=== PATIENT | male | born 1955 | race Caucasian/White ===

== ENCOUNTER 2017-03-11 02:40 | Inpatient (IN) ==
[2017-03-11] MEDS ORDERED: KETOROLAC 30 MG/1 ML VIAL IV STA (03:09)
[2017-03-11] MEDS ORDERED: ONDANSETRON 4 MG/2 ML VIAL IV STA (03:10)
[2017-03-11] MEDS ORDERED: MORPHINE 2 MG/1 ML SYRINGE IV STA (03:10)
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
[2017-03-11 03:14] LABS: Basophils % 0.3 % (0.0-0.8); Eosinophils # 0.3 10*3/uL (0.0-0.87); Eosinophils % 2.8 % (0.00-10.9); Hematocrit 34.4 VOL% (42.0-52.0); Hemoglobin 11.6 GM/DL (14.0-18.0); Immature Granulocytes % 0.3 %; Immature Granulocytes Absolute 0.04 #; Lymphocytes # 1.4 10*3/uL (1.4-4.0); Lymphocytes % 11.1 % (21.2-54.2); Mean Corpuscular HGB Conc 33.7 GM/DL (32-36); Mean Corpuscular Hemoglobin 33 PG (27-34); Mean Corpuscular Volume 96.9 FL (87-102); Mean Platelet Volume 10.4 FL (9.6-12.0); Monocytes # 0.4 10*3/uL (0.11-0.8); Monocytes % 3.6 % (1.7-12.7); Neutrophils # 10.1 10*3/uL (1.4-7.4); Neutrophils % 81.9 % (38.7-73.9); Platelet Count 145 T/CUMM (130-400); Red Blood Count 3.55 MC/CUMM (3.8-5.5); Red Cell Distribution Width 14.9 % (9.3-17.3); White Blood Count 12.3 T/CUMM (4-12)
[2017-03-11] MEDS ORDERED: ONDANSETRON 4 MG/2 ML VIAL ONE (03:16)
[2017-03-11] MEDS ORDERED: MORPHINE 2 MG/1 ML SYRINGE ONE (03:17)
[2017-03-11] MEDS ORDERED: KETOROLAC 30 MG/1 ML VIAL ONE (03:17)
[2017-03-11 03:23] LABS: Apearance,Urine Slightly Hazy (Clear); Bacteria,Urine Many /HPF (Few); Bilirubin,Urine Negative (Negative); Blood, Urine Negative (Negative); Glucose,Urine (UA) Negative (Negative); Ketones,Urine Negative (Negative); Nitrite,Urine Positive (Negative); Protein,Urine 100 MG/DL; RBC,Urine 9 /HPF (0-4); Squamous Epithelial Cell,Urine Occasional /HPF (0-10); Urine Color Yellow (Yellow); Urine Specific Gravity 1.005 (1.001-1.035); Urine Urobilinogen < 2.0 EU/DL (0.2-1.0); WBC,Urine 1 /HPF (0-6)
[2017-03-11 03:32] LABS: Alanine Aminotransferase 17 U/L (16-61); Alkaline Phosphatase 104 U/L (45-117); Aspartate Amino Transferase 23 U/L (0-37); Bilirubin,Total < 0.39 MG/DL (0.2-1.0); Blood Urea Nitrogen 31 MG/DL (7-18); Calcium 8.4 MG/DL (8.5-10.1); Glucose 128 MG/DL (74-106); Osmolality,Calculated 274.4 MOS/KG (273-304); Potassium 4.9 MMOL/L (3.5-5.1); Sodium 133 MMOL/L (136-145); Total Protein 6.2 G/DL (6.4-8.3); Troponin I Only 0.021 NG/ML (0.00-0.045)
[2017-03-11] MEDS ORDERED: LORazepam 2 MG/1 ML VIAL ONE (03:38)
[2017-03-11] MEDS ORDERED: VANCOMYCIN INJ 1,000 MG in SODIUM CHLORIDE 0.9% 250 ML IV STA (03:53)
[2017-03-11] MEDS ORDERED: LORazepam 2 MG/1 ML VIAL IV STA (03:55)
[2017-03-11] MEDS ORDERED: CEFEPIME 2,000 MG in SODIUM CHLORIDE 0.9% 100 ML IV STA (03:59)
[2017-03-11] MEDS ORDERED: VANCOMYCIN 1,000 MG VIAL ONE (04:04)
[2017-03-11] MEDS ORDERED: SODIUM CHLORIDE 0.9% 100 ML IV ONE (04:05)
--- NOTE | 2017-03-11 04:48 | Hospitalist History & Physical ---
Assessment and Plan (1) UTI (urinary tract infection) Status: Acute Current Visit: No (2) CML (chronic myelocytic leukemia) Status: Acute Current Visit: No (3) CKD (chronic kidney disease) Status: Acute Current Visit: No (4) Seizure Status: Acute Current Visit: No (5) Altered mental state Status: Acute Current Visit: No (6) Delirium due to another medical condition Status: Acute Assessment and plan: We will admit the patient service. Secondary to him having a seizure and being unresponsive on want to put him in the ICU. My thought process is possible urinary tract infection he is nitrite positive. We are going to culture his urine. He has a history of MRSA bacteremia O we will have drawn blood cultures. We will start him on vancomycin and Levaquin for this. I cannot discount the fact that he might possibly have had a stroke also. Will check carotid ultrasound. An additional imaging might be necessary and can be ordered once patient is more awake. Will check a Dilantin level in this patient. He is on Dilantin at home. If his low this could be a reason for the seizure. Will consult neurology for their evaluation. Current Visit: No History of Present Illness Chief complaint: Altered mental status History of present illness: Mr. Mcguire is a 61 year old male with past medical history significant for CML , quadriplegia, hypertension and muscle spasms who was in his normal state of health until earlier this evening. Patient was fine he ate his supper then he went to bed. His reports at 12:30 AM she was woke up by him yelling mama please. When she got up to check on him this all the patient could say was normal please. Then she reports he would say Please, Please, Please. She tried to wake him up because he will sleep deeply. She could not wake him up. She called EMS and EMS brought him up to our hospital for further evaluation. Patient had a seizure in the ER he was given Ativan now he is post ictal and I cannot elicit a response at this time other than withdrawing some from pain. No respiratory compromise is noted and blood pressure is elevated. Patient found to have a fever in the ER. Home Medications Medication Instructions Recorded Confirmed Type Allopurinol 300 mg PO DAILY 02/22/15 03/11/17 History Baclofen Tab [Lioresal] 20 mg PO QID 02/22/15 03/11/17 History Carvedilol [Coreg] 3.125 mg PO BID 02/22/15 03/11/17 History Cetirizine Tab [ZyrTEC Tab] 10 mg PO DAILY 02/22/15 03/11/17 History Ciprofloxacin Tab [Cipro Tab] 250 mg PO DAILY 02/22/15 03/11/17 History Imatinib Mesylate [Gleevec] 400 mg PO DAILY 02/22/15 03/11/17 History oxyCODONE ER [OxyCONTIN] 20 mg PO BID 02/22/15 03/11/17 History Bisacodyl Supp [Dulcolax Supp] 10 mg RECTAL QOTHER DAY 01/08/16 03/11/17 History Doxepin [SINEquan] 75 mg PO BEDTIME #30 capsule 01/19/16 03/11/17 Rx Phenytoin ER Cap [Dilantin Cap] 300 mg PO BEDTIME #30 capsule 01/19/16 03/11/17 Rx Allergies Allergy/AdvReac Type Severity Reaction Status Date / Time Penicillins AdvReac Unknown/Unable Verified 01/06/16 21:22 to obtain Medical,Surgical,& Family Hx - Medical History Cardio: History of: Hypertension Genitourinary: History of: Recurring Urinary Tract Infections (condom cath) Hematology: History of: Hematologic Cancer (leukemia) Other: History of: Cancer (LUEKEMIA) - Surgical History Surgical History: noncontributory (According to the he has had no surgeries ) - Family History Family History: Reports;: Family Cancer, Additional Family History (Kidney issues) - Social History Smoking Status: Current every day smoker Frequency of Alcohol Use: None Type of Drug Use: None ROS unobtainable: due to mental status Exam - Constitutional Vitals: Period Temp Pulse Resp BP Sys/Vega Pulse Ox Last 24 Hr 98.9 F-100.3 F 106-127 18-24 143-190/63-111 96-100 General appearance: under weight - Head Head exam: Present: normal inspection - Eye Eye exam: Present: EOMI Pupils: Present: JOSETTE - ENT ENT exam: Present: normal exam - Neck Neck exam: Present: normal inspection - Respiratory Respiratory exam: Present: clear to auscultation bilaterally - Cardiovascular Cardiovascular exam: Present: tachycardia - GI/Abdominal GI/Abdominal exam: Present: normal bowel sounds - Extremities Exam Extremities exam: Present: normal inspection - Back Exam Back exam: Present: normal inspection - Neurological Exam Neurological exam: Present: altered - Psychiatric Psychiatric exam: Present: other (Unable to assess) - Skin Skin exam: Present: normal color Results - Labs CBC & BMP: 03/11/17 02:54 03/11/17 02:54
[2017-03-11] MEDS ORDERED: ONDANSETRON 4 MG/2 ML VIAL IV PRN (05:01)
[2017-03-11] MEDS ORDERED: ALBUTEROL 2.5 MG/3 ML NEB RESP TX PRN (05:01)
[2017-03-11] MEDS ORDERED: MORPHINE 2 MG/1 ML SYRINGE IV PRN (05:01)
[2017-03-11] MEDS ORDERED: LORazepam 2 MG/1 ML VIAL IV PRN (05:09)
[2017-03-11] MEDS ORDERED: LABETALOL 20 MG/4 ML SYRINGE IV PRN (05:11)
[2017-03-11 05:33] LABS: Barbiturates Screen,Urine Negative (Negative); Benzodiazepines Screen,Urine Negative (Negative); Cannabinoid Screen,Urine Negative (Negative); Opiate Screen,Urine Negative (Negative); Phencyclidine Screen,Urine Negative (Negative)
[2017-03-11] MEDS ORDERED: VANCOMYCIN INJ 1,000 MG in SODIUM CHLORIDE 0.9% 250 ML IV PRN (05:46)
[2017-03-11] MEDS: SODIUM CHLORIDE 0.9% 1,000 ML IV SCH ×2 (05:48→16:30)
[2017-03-11] MEDS ORDERED: LEVOFLOXACIN INJ 500 MG in PREMIX 1 EACH IV ONE (06:00)
[2017-03-11 06:45] LABS: Risk Ratio 5.71
--- NOTE | 2017-03-11 06:51 | EKG Report ---
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
--- NOTE | 2017-03-11 07:03 | CT Report ---
CT head/brain wo con Indication: Mental status changes. CT BRAIN WITHOUT CONTRAST DLP: 1164 mGy*cm. One or more of the following dose reduction techniques was used: Automated exposure control, adjustment of the mA and/or kV according the patient size, or use of iterative reconstruction techniques. Comparison: 01/06/2016. Date of admission: 03/11/2017. Technique: Axial noncontrast CT images of the brain were obtained. Findings: No acute hemorrhage, mass or mass effect. Generalized atrophy and patchy periventricular white matter hypodensity is present throughout both convexities. Cortical anderson-white junction and structures of the basal ganglia are well-defined. No bone lesions are shown. Internal auditory canals are symmetric. Visualized sinuses and mastoid air cells are clear. Impression: No acute intracranial pathology. Generalized atrophy and changes consistent with microvascular disease. PROCEDURE INTERPRETED AT [facility] DEPARTMENT OF RADIOLOGY Final Report Signed by: Thony Duffy M.D.
--- NOTE | 2017-03-11 07:09 | CT Report ---
CT chest abdomen pelvis wo con Indication: Abdominal pain. History of UTIs. Quadriplegic. Altered mental status. CT CHEST, ABDOMEN AND PELVIS WITHOUT CONTRAST DLP: 377 mGy*cm. One or more of the following dose reduction techniques was used: Automated exposure control, adjustment of the mA and/or kV according the patient size, or use of iterative reconstruction techniques. Comparison: None Technique: Axial noncontrast CT images of the chest, abdomen and pelvis were obtained. Oral contrast was not used. Chest: Heart size is normal. Moderate calcified atheromatous disease of the aorta and coronary arteries is present. There is no aortic aneurysm present. No mediastinal, axillary or hilar lymphadenopathy. Severe pulmonary emphysema noted diffusely with associated interstitial scarring of the central lungs and lung bases. Scattered calcified granulomata are present. No confluent areas of infiltrate shown. Pleural spaces are clear. No acute rib fractures shown. Thoracic spine is intact. Abdomen: Breathing motion artifact is noted. Unenhanced liver, gallbladder, spleen, pancreas and adrenal glands appear unremarkable. Bilateral renal hypodensities are present, likely cysts. The largest is on the right kidney measuring excess of 36 mm diameter. The second largest on the right kidney is approximately 30 mm diameter and has a very thin mural calcification posteriorly. There is a single 2 mm nonobstructing left kidney stone identified. No hydronephrosis of either kidney. Calcified atheromatous disease the aorta and iliac arteries noted. No aneurysm. No bowel obstruction. No free fluid, free air or lymphadenopathy. Pelvis: Urinary bladder and prostate are within normal limits. Increased stool in the rectal vault noted. No small bowel dilatation. No free fluid, free air or lymphadenopathy. No destructive bone lesions. Impression: 1. Severe pulmonary emphysema. Scattered calcified granulomata and calcified atheromatous disease. 2. Bilateral renal cysts, one of which has a very thin mural calcification, still Bosniak 2. Nonobstructing 2 mm left kidney stone. 3. Constipation or impaction rectal vault. PROCEDURE INTERPRETED AT [facility] DEPARTMENT OF RADIOLOGY Final Report Signed by: Thony Duffy M.D.
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
[2017-03-11] MEDS: ENOXAPARIN 30 MG/0.3 ML SYRINGE SUBCUT SCH (08:27)
[2017-03-11] MEDS: PANTOPRAZOLE 40 MG VIAL IV SCH (08:27)
[2017-03-11] MEDS: ASPIRIN 300 MG SUPP RECTAL SCH (11:50)
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
--- NOTE | 2017-03-11 17:24 | Neurology Consult Note ---
History of Present Illness History of present illness: Mr. Mcguire is a 61 year old male with past medical history significant for CML , quadriplegia secondary to spinal cord injury at C4-C5 in 1993, hypertension, history of seizure some 14 months ago and muscle spasms who was in his normal state of health until earlier this evening. Patient was fine he ate his supper then he went to bed. His reports at 12:30 AM she was woke up by him yelling mama please. When she got up to check on him this all the patient could say was normal please. Then she reports he would say Please, Please, Please. She tried to wake him up because he will sleep deeply. She could not wake him up. She called EMS and EMS brought him up to our hospital for further evaluation. Patient had a seizure in the ER he was given Ativan. I believe patient had another seizure in the ER after that. He was on anti-epileptic drug Dilantin at one point but it was stopped for some unknown reason. Home Medications Medication Instructions Recorded Confirmed Type Allopurinol 300 mg PO DAILY 02/22/15 03/11/17 History Baclofen Tab [Lioresal] 20 mg PO TID 02/22/15 03/11/17 History Carvedilol [Coreg] 3.125 mg PO BID 02/22/15 03/11/17 History Cetirizine Tab [ZyrTEC Tab] 10 mg PO DAILY 02/22/15 03/11/17 History Ciprofloxacin Tab [Cipro Tab] 250 mg PO DAILY 02/22/15 03/11/17 History Imatinib Mesylate [Gleevec] 400 mg PO DAILY 02/22/15 03/11/17 History oxyCODONE ER [OxyCONTIN] 20 mg PO BEDTIME 02/22/15 03/11/17 History Bisacodyl Supp [Dulcolax Supp] 10 mg RECTAL TID 01/08/16 03/11/17 History Phenytoin ER Cap [Dilantin Cap] 300 mg PO BEDTIME #30 capsule 01/19/16 03/11/17 Rx Sertraline [Zoloft] 100 mg PO DAILY 03/11/17 03/11/17 History chlorproMAZINE TAB [Thorazine Tab] 50 mg PO DAILY 03/11/17 03/11/17 History Allergies Allergy/AdvReac Type Severity Reaction Status Date / Time Penicillins AdvReac Unknown/Unable Verified 01/06/16 21:22 to obtain 12 point system: reviewed and no additional remarkable complaints except as stated Medical,Surgical,& Family Hx - Medical History Cardio: History of: Hypertension Genitourinary: History of: Recurring Urinary Tract Infections (condom cath) Hematology: History of: Hematologic Cancer (leukemia) Other: History of: Cancer (LUEKEMIA) - Family History Family History: Reports;: Family Cancer, Additional Family History (Kidney issues) - Social History Smoking Status: Current every day smoker Frequency of Alcohol Use: None Type of Drug Use: None Exam - Constitutional Vitals: Period Temp Pulse Resp BP Sys/Vega Pulse Ox Last 24 Hr 98.9 F-101.9 F 106-127 14-24 141-190/63-111 93-100 Exam: GENERAL: Patient is in no acute distress. NECK: Neck is supple. There is no JVD. No carotid bruits present. No thyroid masses. CVS: First and second heart sounds are normal. There is no S3 present. Regular rate and rhythm. RESPIRATORY: Bilateral rales and rhonchi. ABDOMEN: Soft and non-tender. Bowel sounds are present. There is no hepatosplenomegaly. EXT: There is no palpable edema. Peripheral pulses are present. Skin: No rashes Central Nervous system: General: Alert, awake but disoriented. Speech: Somewhat Fluent Comprehension: Impaired Facial expressions: Normal Cranial Nerves: Pupils are equally reactive to light. Doll's head eye movements are positive. No facial asymmetry seen. Motor: Bulk and Tone is normal. Bilateral upper and lower extremity muscles atrophia. Strength in the upper extremities is 1-2/5 Strength in the lower extremities is 0/5 Sensory: Cannot be assessed due to mental status Reflexes: 1+ and symmetrical Cerebellar function: Cannot be assessed Gait: Patient is quadriplegic and doesn't walk. Results - Labs CBC & BMP: 03/11/17 02:54 03/11/17 02:54 Assessment and Plan (1) Seizure disorder Status: Acute Assessment and plan: Patient definitely needs to be on antiseizure medication from here on. We will start him on Trileptal 150 mg twice daily We will increase the dose periodically. Thank you for the consult Hopefully he will go home in next day or 2. Current Visit: Yes Specialty Discharge - Follow Up or Referrals
[2017-03-11] MEDS: CARVEDILOL 3.125 MG TABLET PO SCH (20:37)
[2017-03-11] MEDS: OXcarbazepine 300 MG TABLET PO SCH (20:37)
[2017-03-12] MEDS: SODIUM CHLORIDE 0.9% 1,000 ML IV SCH ×3 (02:54→22:45)
[2017-03-12 05:37] LABS: Basophils % 0.3 % (0.0-0.8); Eosinophils # 0.1 10*3/uL (0.0-0.87); Hematocrit 31.8 VOL% (42.0-52.0); Hemoglobin 10.6 GM/DL (14.0-18.0); Immature Granulocytes % 0.4 %; Immature Granulocytes Absolute 0.04 #; Lymphocytes # 1.5 10*3/uL (1.4-4.0); Mean Corpuscular HGB Conc 33.3 GM/DL (32-36); Mean Corpuscular Hemoglobin 32 PG (27-34); Mean Corpuscular Volume 97.2 FL (87-102); Mean Platelet Volume 10.4 FL (9.6-12.0); Monocytes # 0.8 10*3/uL (0.11-0.8); Monocytes % 8.4 % (1.7-12.7); Neutrophils # 6.8 10*3/uL (1.4-7.4); Neutrophils % 73.9 % (38.7-73.9); Platelet Count 120 T/CUMM (130-400); Red Blood Count 3.27 MC/CUMM (3.8-5.5); Red Cell Distribution Width 15.1 % (9.3-17.3); White Blood Count 9.3 T/CUMM (4-12)
[2017-03-12] MEDS ORDERED: LEVOFLOXACIN INJ 250 MG in PREMIX 1 EACH IV SCH (06:00)
[2017-03-12 06:09] LABS: Albumin 2.2 G/DL (3.4-5.0); Bilirubin,Total 0.5 MG/DL (0.2-1.0); Calcium 8.5 MG/DL (8.5-10.1); Osmolality,Calculated 278.8 MOS/KG (273-304); Potassium 4.2 MMOL/L (3.5-5.1); Total Protein 5.6 G/DL (6.4-8.3)
--- NOTE | 2017-03-12 08:02 | Oncology Progress Note ---
Oncology Subjective PN Interval history: Mr. Mcguire has been tolerating treatment for his CML very well. He has been very compliant in taking his Gleevec for it and it has been under good control. Today he is awake and alert. He recognizes me. He tells me that he has been taking his seizure medications and that he has not held them for any reason. I tend to believe him because he has been very compliant in taking his medication for his CML and I have no reason to doubt that he is taking his seizure medication as well. I am unaware of whether or not he has been followed by anyone else for his other medical problems. He obviously needs to be seen on a regular basis to attempt to prevent further seizures. I have instructed the nurses to allow him to resume his Gleevec. He has his own medicine. Exam - Constitutional Vitals: Period Temp Pulse Resp BP Sys/Vega Pulse Ox Last 24 Hr 98.9 F-101.7 F 87-122 14-24 141-185/73-108 93-99 Results - Labs CBC & BMP: 03/12/17 04:14 03/12/17 04:14 Specialty Discharge - Follow Up or Referrals
--- NOTE | 2017-03-12 08:18 | Ultrasound Report ---
US carotid duplex BI Indication: AMS. Comparison: None. Technique: Multiple longitudinal and transverse real-time sonographic images of the bilateral carotid arterial systems are obtained with grayscale, spectral, and color Doppler analysis. Findings: Peak systolic velocities within the right CCA, proximal ICA, and distal ICA are 63, 69, and 78 cm/s respectively. Peak systolic velocities within the left CCA, proximal ICA, and distal ICA are 72, 154, and 119 cm/s respectively. ICA/CCA ratios on the right and left are 1.2 and 2.2 respectively. Antegrade flow demonstrated within the bilateral vertebral arteries. Grayscale imaging demonstrates moderate bilateral atherosclerotic plaque, greater on the left. IMPRESSION: Elevated velocity suggests 50-69% narrowing of the left cervical internal carotid artery. No convincing sonographic evidence of significant (50% or greater) narrowing of the right cervical internal carotid artery. Indirect NASCET criteria utilized. PROCEDURE INTERPRETED AT [facility] DEPARTMENT OF RADIOLOGY Final Report Signed by: Dr Kyle Min
[2017-03-12] MEDS: ENOXAPARIN 30 MG/0.3 ML SYRINGE SUBCUT SCH (08:37)
[2017-03-12] MEDS: PANTOPRAZOLE 40 MG VIAL IV SCH (08:38)
[2017-03-12] MEDS: CARVEDILOL 3.125 MG TABLET PO SCH (08:38)
[2017-03-12] MEDS: OXcarbazepine 300 MG TABLET PO SCH ×2 (08:38→20:36)
[2017-03-12] MEDS ORDERED: VANCOMYCIN INJ 1,000 MG in SODIUM CHLORIDE 0.9% 250 ML IV ONE (09:00)
[2017-03-12] MEDS ORDERED: ZINC OXIDE 16% PASTE 57 GM TUBE TOP PRN (10:13)
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
[2017-03-12 16:24] LABS: Potassium 4.1 MMOL/L (3.5-5.1)
[2017-03-12] MEDS: CEFEPIME 1,000 MG in SODIUM CHLORIDE 0.9% 100 ML IV SCH (16:44)
[2017-03-12] MEDS: ASPIRIN 300 MG SUPP RECTAL SCH (16:55)
[2017-03-12] MEDS: ASPIRIN EC 325 MG TABLET PO SCH (17:05)
--- NOTE | 2017-03-12 17:43 | Neurology Progress Note ---
Neurology - PN : Subjective Interval history: Stable neurologically. No more seizures reported. Seems to be doing okay. Still having some high blood pressure Exam (Progress Note) - Constitutional Vitals: Period Temp Pulse Resp BP Sys/Vega Pulse Ox Last 24 Hr 98.9 F-100 F 87-122 16-22 155-194/83-120 91-99 Exam: GENERAL: Patient is in no acute distress. NECK: Neck is supple. There is no JVD. No carotid bruits present. No thyroid masses. CVS: First and second heart sounds are normal. There is no S3 present. Regular rate and rhythm. RESPIRATORY: Bilateral rales and rhonchi. ABDOMEN: Soft and non-tender. Bowel sounds are present. There is no hepatosplenomegaly. EXT: There is no palpable edema. Peripheral pulses are present. Skin: No rashes Central Nervous system: General: Alert, awake but disoriented. Speech: Somewhat Fluent Comprehension: Impaired Facial expressions: Normal Cranial Nerves: Pupils are equally reactive to light. Doll's head eye movements are positive. No facial asymmetry seen. Motor: Bulk and Tone is normal. Bilateral upper and lower extremity muscles atrophia. Strength in the upper extremities is 1-2/5 Strength in the lower extremities is 0/5 Sensory: Cannot be assessed due to mental status Reflexes: 1+ and symmetrical Cerebellar function: Cannot be assessed Gait: Patient is quadriplegic and doesn't walk. Results - Labs CBC & BMP: 03/12/17 04:14 03/12/17 15:52 Assessment and Plan (1) Seizure disorder Status: Acute Assessment and plan: Continue Keppra for now. We will continue watchful observation Patient is a stable and back to his baseline from neuro standpoint Current Visit: Yes Specialty Discharge - Follow Up or Referrals
[2017-03-12] MEDS: DOCUSATE SODIUM 100 MG CAPSULE PO SCH (20:36)
[2017-03-12] MEDS ORDERED: CARVEDILOL 6.25 MG TABLET PO SCH (21:00)
[2017-03-12] MEDS: GLEEVEC 400 MG PO SCH (22:42)
[2017-03-13] MEDS: CEFEPIME 1,000 MG in SODIUM CHLORIDE 0.9% 100 ML IV SCH ×2 (04:33→16:14)
[2017-03-13 05:34] LABS: Basophils % 0.2 % (0.0-0.8); Eosinophils # 0.2 10*3/uL (0.0-0.87); Eosinophils % 2.3 % (0.00-10.9); Hematocrit 29.2 VOL% (42.0-52.0); Hemoglobin 9.8 GM/DL (14.0-18.0); Immature Granulocytes % 0.3 %; Immature Granulocytes Absolute 0.03 #; Lymphocytes # 1.5 10*3/uL (1.4-4.0); Lymphocytes % 16.6 % (21.2-54.2); Mean Corpuscular HGB Conc 33.6 GM/DL (32-36); Mean Corpuscular Hemoglobin 32 PG (27-34); Mean Corpuscular Volume 95.4 FL (87-102); Mean Platelet Volume 10.6 FL (9.6-12.0); Monocytes # 0.6 10*3/uL (0.11-0.8); Monocytes % 7.1 % (1.7-12.7); Neutrophils # 6.5 10*3/uL (1.4-7.4); Neutrophils % 73.5 % (38.7-73.9); Platelet Count 122 T/CUMM (130-400); Red Blood Count 3.06 MC/CUMM (3.8-5.5); White Blood Count 8.8 T/CUMM (4-12)
--- NOTE | 2017-03-13 07:18 | Oncology Progress Note ---
Oncology Subjective PN Interval history: White cell count today 8800 with a hemoglobin of 9.8 and a platelet count of 122 ,000. His CML is well controlled. I told the nurses yesterday that he could resume Gleevec. He is back on it today and taking it from his prescription bottle since it is not dispensed by the pharmacy. His hemoglobin is 9.8 today. His serum creatinine is stable. He has an appointment to see me in follow-up. He also needs someone to follow him for his seizures. That is not my specialty. Exam - Constitutional Vitals: Period Temp Pulse Resp BP Sys/Vega Pulse Ox Last 24 Hr 98.4 F-100 F 89-114 15-24 160-198/82-120 91-98 Results - Labs CBC & BMP: 03/13/17 04:53 03/12/17 15:52 Specialty Discharge - Follow Up or Referrals
[2017-03-13] MEDS: CARVEDILOL 12.5 MG TABLET PO SCH ×2 (08:26→20:39)
[2017-03-13] MEDS: ASPIRIN EC 325 MG TABLET PO SCH (08:26)
[2017-03-13] MEDS: ENOXAPARIN 30 MG/0.3 ML SYRINGE SUBCUT SCH (08:26)
[2017-03-13] MEDS: OXcarbazepine 300 MG TABLET PO SCH ×2 (08:26→20:39)
[2017-03-13] MEDS: DOCUSATE SODIUM 100 MG CAPSULE PO SCH ×2 (08:26→20:39)
[2017-03-13] MEDS: PANTOPRAZOLE 40 MG VIAL IV SCH (08:27)
[2017-03-13] MEDS: GLEEVEC 400 MG PO SCH (08:27)
[2017-03-13] MEDS: SODIUM CHLORIDE 0.9% 1,000 ML IV SCH (09:20)
--- NOTE | 2017-03-13 14:49 | Neurology Progress Note ---
Neurology - PN : Subjective Interval history: Stable neurologically. No new problems reported. No seizures reported. Tolerating medicines well Exam (Progress Note) - Constitutional Vitals: Period Temp Pulse Resp BP Sys/Vega Pulse Ox Last 24 Hr 98.4 F-99.3 F 86-110 15-24 132-198/82-120 92-98 Exam: GENERAL: Patient is in no acute distress. NECK: Neck is supple. There is no JVD. No carotid bruits present. No thyroid masses. CVS: First and second heart sounds are normal. There is no S3 present. Regular rate and rhythm. RESPIRATORY: Bilateral rales and rhonchi. ABDOMEN: Soft and non-tender. Bowel sounds are present. There is no hepatosplenomegaly. EXT: There is no palpable edema. Peripheral pulses are present. Skin: No rashes Central Nervous system: General: Alert, awake and oriented Speech: Fluent Comprehension: Fair Facial expressions: Normal Cranial Nerves: Pupils are equally reactive to light. Extraocular movements are intact. No facial asymmetry seen. Motor: Bulk and Tone is normal. Bilateral upper and lower extremity muscles atrophia. Strength in the upper extremities is 1-2/5 Strength in the lower extremities is 0/5 Sensory: Cannot be assessed due to mental status Reflexes: 1+ and symmetrical Cerebellar function: Cannot be assessed Gait: Patient is quadriplegic and doesn't walk. Results - Labs CBC & BMP: 03/13/17 04:53 03/12/17 15:52 Assessment and Plan (1) Seizure disorder Status: Acute Assessment and plan: Continue Keppra for now. Sign off please call as needed Follow-up in 4 week Current Visit: Yes Specialty Discharge - Follow Up or Referrals Follow up with: Bimal Landry MD [Physician] - 1 Month
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
[2017-03-13] MEDS ORDERED: BISACODYL 10 MG SUPP RECTAL PRN (16:23)
[2017-03-13] MEDS: amLODIPine 5 MG TABLET PO SCH (16:36)
[2017-03-13] MEDS ORDERED: VANCOMYCIN INJ 1,000 MG in SODIUM CHLORIDE 0.9% 250 ML IV ONE (18:00)
[2017-03-14] MEDS: SODIUM CHLORIDE 0.9% 1,000 ML IV SCH ×4 (02:15→12:58)
[2017-03-14 06:21] LABS: Basophils # 0.1 10*3/uL (0.0-0.2); Basophils % 0.5 % (0.0-0.8); Eosinophils # 0.4 10*3/uL (0.0-0.87); Hematocrit 29.5 VOL% (42.0-52.0); Immature Granulocytes % 0.3 %; Immature Granulocytes Absolute 0.03 #; Lymphocytes # 1.9 10*3/uL (1.4-4.0); Lymphocytes % 19.9 % (21.2-54.2); Mean Corpuscular HGB Conc 33.9 GM/DL (32-36); Mean Corpuscular Hemoglobin 33 PG (27-34); Mean Corpuscular Volume 95.8 FL (87-102); Mean Platelet Volume 9.8 FL (9.6-12.0); Monocytes # 0.6 10*3/uL (0.11-0.8); Monocytes % 6.1 % (1.7-12.7); Neutrophils # 6.8 10*3/uL (1.4-7.4); Neutrophils % 69.2 % (38.7-73.9); Platelet Count 121 T/CUMM (130-400); Red Blood Count 3.08 MC/CUMM (3.8-5.5); Red Cell Distribution Width 14.9 % (9.3-17.3); White Blood Count 9.8 T/CUMM (4-12)
[2017-03-14 06:50] LABS: Albumin 2.3 G/DL (3.4-5.0); Bilirubin,Total 0.6 MG/DL (0.2-1.0); Calcium 7.8 MG/DL (8.5-10.1); Osmolality,Calculated 283.7 MOS/KG (273-304); Potassium 4.2 MMOL/L (3.5-5.1); Total Protein 5.2 G/DL (6.4-8.3)
[2017-03-14] MEDS: CEFEPIME 1,000 MG in SODIUM CHLORIDE 0.9% 100 ML IV SCH (08:20)
[2017-03-14] MEDS: DOCUSATE SODIUM 100 MG CAPSULE PO SCH (09:43)
[2017-03-14] MEDS: ASPIRIN EC 325 MG TABLET PO SCH (09:43)
[2017-03-14] MEDS: CARVEDILOL 12.5 MG TABLET PO SCH (09:43)
[2017-03-14] MEDS: OXcarbazepine 300 MG TABLET PO SCH (09:43)
[2017-03-14] MEDS: amLODIPine 5 MG TABLET PO SCH (09:43)
[2017-03-14] MEDS: PANTOPRAZOLE 40 MG VIAL IV SCH (09:43)
[2017-03-14] MEDS: ENOXAPARIN 30 MG/0.3 ML SYRINGE SUBCUT SCH (09:44)
[2017-03-14] MEDS: GLEEVEC 400 MG PO SCH (09:48)
--- NOTE | 2017-03-14 10:15 | Oncology Progress Note ---
Oncology Subjective PN Interval history: I am following Mr. Mcguire for CML. It is under good control. He has a follow -up appointment to see me later this month or early next month. When he is discharged, he should be discharged on Gleevec 400 mg p.o. daily. Once again, I discussed his case with his today and she tells me that he had not been taking seizure medications at home. It had been discontinued. Exam - Constitutional Vitals: Period Temp Pulse Resp BP Sys/Vega Pulse Ox Last 24 Hr 97.2 F-99 F 83-100 14-22 132-187/72-100 91-98 Results - Labs CBC & BMP: 03/14/17 05:26 03/14/17 05:26 Specialty Discharge - Follow Up or Referrals Follow up with: Bimal Landry MD [Physician] - 1 Month
--- NOTE | 2017-03-14 11:18 | Infectious Disease Consult ---
Assessment and Plan (1) Asymptomatic bacteriuria Status: Acute Assessment and plan: The UA done with urine culture had only 1 white blood cell per high-power field. Patient has asymptomatic bacteriuria rather than urinary tract infection , and treatment is not indicated. Recommendations: discontinue antibiotics. Other care per primary team. Thank you very much for the consult. Call again as needed Discussed with Dr. Vizcarra Discussed with patient's at bedside Current Visit: Yes History of Present Illness Chief complaint: Positive urine culture History of present illness: Mr. Mcguire is a 62 year old male who is a functional quadriplegic presented with confusion. He had a seizure when he came to the hospital. He first had a seizure a year ago but was not sent him on antiseizure medicine. His did not notice any fever or chills at home but he did have fever with a negative come to the hospital. He has a condom catheter and she noted no changes in his urine. When he came in urine cultures done routinely and came up positive for 3 organisms. No cough or shortness of breath. The patient smokes but has cut down for 1-1/2 packs of cigarettes per day to half a pack. Plan is for him to go today and I am asked to advise on treatment for the positive urine culture. She feels as if he is back to his baseline no complaints at all today. Good appetite no nausea vomiting or diarrhea. Home Medications Medication Instructions Recorded Confirmed Type Allopurinol 300 mg PO DAILY 02/22/15 03/11/17 History Baclofen Tab [Lioresal] 20 mg PO TID 02/22/15 03/11/17 History Carvedilol [Coreg] 3.125 mg PO BID 02/22/15 03/11/17 History Cetirizine Tab [ZyrTEC Tab] 10 mg PO DAILY 02/22/15 03/11/17 History Ciprofloxacin Tab [Cipro Tab] 250 mg PO DAILY 02/22/15 03/11/17 History Imatinib Mesylate [Gleevec] 400 mg PO DAILY 02/22/15 03/11/17 History oxyCODONE ER [OxyCONTIN] 20 mg PO BEDTIME 02/22/15 03/11/17 History Bisacodyl Supp [Dulcolax Supp] 10 mg RECTAL TID 01/08/16 03/11/17 History Phenytoin ER Cap [Dilantin Cap] 300 mg PO BEDTIME #30 capsule 01/19/16 03/11/17 Rx Sertraline [Zoloft] 100 mg PO DAILY 03/11/17 03/11/17 History chlorproMAZINE TAB [Thorazine Tab] 50 mg PO DAILY 03/11/17 03/11/17 History Allergies Allergy/AdvReac Type Severity Reaction Status Date / Time Penicillins AdvReac Unknown/Unable Verified 01/06/16 21:22 to obtain 12 point system: reviewed and no additional remarkable complaints except as stated (Per HPI) Medical,Surgical,& Family Hx - Medical History Cardio: History of: Hypertension Genitourinary: History of: Recurring Urinary Tract Infections (condom cath) Hematology: History of: Hematologic Cancer (leukemia) Other: History of: Cancer (LUEKEMIA) - Family History Family History: Reports;: Family Cancer, Additional Family History (Kidney issues) - Social History Smoking Status: Current every day smoker Frequency of Alcohol Use: None Type of Drug Use: None Infectious Disease Exam H&P - Constitutional Vitals: Vital Signs Temp Pulse Resp BP Pulse Ox 98 F 100 H 18 187/85 93 L 03/14/17 08:00 03/14/17 08:00 03/14/17 08:00 03/14/17 08:00 03/14/17 08:00 Intake and Output 03/13/17 03/14/17 03/14/17 23:59 07:59 15:59 Intake Total 1100 / 1100 1000 / 1000 Output Total 1200 / 1200 1300 / 1300 Balance -100 / -100 -1300 / -1300 1000 / 1000 Intake: IV 1100 / 1100 1000 / 1000 Maxipime 1,000 mg In Ns 100 / 100 100 ml @ 200 mls/hr IV Q12H TING Rx#:[id number] Ns 1,000 ml @ 100 mls/hr 1000 / 1000 1000 / 1000 IV .Q10H TING Rx#: [id number] Output: Urine 1200 / 1200 1300 / 1300 Other: Voiding Method Indwelling Catheter Weight 58.559 kg Patient Weight 03/14/17 23:59 Weight 58.559 kg Exam: General: Patient comfortable, communicative and completely nontoxic appearing HEENT: Mucous membranes pink and moist, anicteric acyanotic, JOSETTE, no oropharyngeal exudates but somewhat poor dentition Neck: Supple, no thyroid gland enlargement Respiratory system: Breath sounds vesicular, no crepitations or wheezes Cardiovascular: Normal S1 and S2, no murmurs appreciated Abdomen: Normal bowel sounds, soft nontender throughout, no organomegaly or mass Genitourinary: No suprapubic pain or bladder distention, clear urine from Woo catheter Extremities: no edema, limbs wasted Skin: No rash Reports - Labs CBC & BMP: 03/14/17 05:26 03/14/17 05:26 Labs: Laboratory Results - last 24 hr 03/13/17 03/14/17 03/14/17 20:28 05:26 05:26 WBC 9.8 RBC 3.08 L Hgb 10.0 L Hct 29.5 L MCV 95.8 MCH 33 MCHC 33.9 RDW 14.9 Plt Count 121 L MPV 9.8 Neut % (Auto) 69.2 Lymph % (Auto) 19.9 L [place] % (Auto) 6.1 Eos % (Auto) 4.0 Baso % (Auto) 0.5 Neut # (Auto) 6.8 Lymph # (Auto) 1.9 [place] # (Auto) 0.6 Eos # (Auto) 0.4 Baso # (Auto) 0.1 Immature Gran % 0.3 Nucleated RBC % 0.0 Immature Gran # 0.03 Nucleated RBCs # 0.00 Immature Plt Fraction 0.0 Sodium 138 Potassium 4.2 Chloride 105 Carbon Dioxide 24 Anion Gap 13.2 BUN 40 H Creatinine 2.50 H GFR Calculation 27 BUN/Creatinine Ratio 16.00 Glucose 81 POC Glucose 123 H Calculated Osmolality 283.7 Calcium 7.8 L Total Bilirubin 0.60 AST 28 ALT 19 Alkaline Phosphatase 70 Total Protein 5.2 L Albumin 2.3 L Globulin 2.9 Albumin/Globulin Ratio 0.7 L - Reports Microbiology: Microbiology 03/13/17 18:46 Gram Stain - Final Sputum 03/11/17 04:09 Blood Culture - Preliminary Blood No growth at 3 days 03/11/17 03:57 Blood Culture - Preliminary Blood No growth at 3 days 03/11/17 Unknown Urine Culture - Final Urine,Voided Acinetobacter baumannii/haemolyticus Stenotrophomonas maltophilia Enterococcus faecium 03/11/17 18:40 Urine Culture - Final Urine,In and Out Cath No Growth at 48 hours. Specialty Discharge - Follow Up or Referrals Follow up with: Bimal Landry MD [Physician] - 1 Month
--- NOTE | 2017-03-14 11:38 | Discharge Summary ---
<Malik Salinas - Last Filed: 03/14/17 12:16> Hospital Course - Hospital Course Hospital Course: Mr. Mcguire is a 61 year old male with past medical history significant for CML , quadriplegia, hypertension and muscle spasms who was admitted to the [facility] ED on 03/11/2017 for further evaluation of altered mental status. The patient reportedly had a seizure in the ER was given Ativan admitted to the ICU for further evaluation and treatment. No consultations by oncology and neurology. Due to his neurological state, hematology recommended holding his Gleevec until the patient was able to swallow and deferred management of other conditions to neurology and the hospital medicine team. Neurology determined the patient needs to be on antiseizure medication from here on. He was started on Trileptal 150 mg twice daily to be titrated periodically. Carotid Dopplers found elevated velocities suggesting 50-69% narrowing of the left cervical internal carotid artery. No convincing sonographic evidence of significant narrowing of the right cervical internal carotid artery. Patient became more alert on 03/12/2017 and was restarted on Gleevec on 03/13/2017. During his hospital course, the patient was also found to have asymptomatic bacteriuria for which an infectious disease consult was ordered. Upon consultation, ID found treatment not to be indicated. If necessary, the patient may be treated with Bactrim DS 1 tablet daily 3. Patient was transferred to [facility] floor for continuation of care. At this time, the patient has reached maximum benefit from hospitalization and is stable for discharge. He will be discharged home on Gleevec 400 mg p.o. daily. He should follow-up with Dr. Yousif in 3-4 weeks. Patient will need to continue his Trileptal anticonvulsant therapy as prescribed prophylactically to prevent further seizure activity. He will follow-up with Dr. Landry in 4 weeks. - Time spent with patient Time with patient DS: Greater than 30 minutes Specialty Discharge - Follow Up or Referrals Follow up with: Bimal Landry MD [Physician] - 1 Month Discharge Plan - Discharge Data Disposition: Disch To Home/Self Care - Discharge Medications New Carvedilol [Coreg] 25 mg PO BID #60 tablet OXcarbazepine [Trileptal] 150 mg PO BID #60 tablet Aspirin EC Tab 325 mg PO DAILY tablet Continue Baclofen Tab [Lioresal] 20 mg PO TID Cetirizine Tab [ZyrTEC Tab] 10 mg PO DAILY oxyCODONE ER [OxyCONTIN] 20 mg PO BEDTIME Allopurinol 300 mg PO DAILY Imatinib Mesylate [Gleevec] 400 mg PO DAILY Bisacodyl Supp [Dulcolax Supp] 10 mg RECTAL TID chlorproMAZINE TAB [Thorazine Tab] 50 mg PO DAILY Sertraline [Zoloft] 100 mg PO DAILY Discontinued Ciprofloxacin Tab [Cipro Tab] 250 mg PO DAILY Carvedilol [Coreg] 3.125 mg PO BID Phenytoin ER Cap [Dilantin Cap] 300 mg PO BEDTIME #30 capsule - Follow Up or Referral Follow Up: Bimal Landry MD [Physician] - 1 Month - Forms/Instructions Instructions: Non-epileptic Seizures (DC) Exam - Constitutional Vitals: Period Temp Pulse Resp BP Sys/Vega Pulse Ox Last 24 Hr 97.2 F-98.2 F 83-100 14-22 132-187/72-100 91-98 Discharge Results Procedures and tests throughout hospitalization: Pending Orders 03/11/17 04:09 Blood Culture Stat 03/11/17 17:11 Blood Culture Routine 03/13/17 18:46 Sputum Culture and Gram Stain Routine 03/15/17 04:00 CBC [Comp Blood Count Auto Diff] IN AM 03/16/17 04:00 CBC [Comp Blood Count Auto Diff] IN AM 03/17/17 04:00 CBC [Comp Blood Count Auto Diff] IN AM 03/18/17 04:00 CBC [Comp Blood Count Auto Diff] IN AM Labs on day of discharge: Labs from last 24 hours 03/14/17 03/14/17 03/13/17 05:26 05:26 20:28 WBC 9.8 RBC 3.08 L Hgb 10.0 L Hct 29.5 L MCV 95.8 MCH 33 MCHC 33.9 RDW 14.9 Plt Count 121 L MPV 9.8 Neut % (Auto) 69.2 Lymph % (Auto) 19.9 L [place] % (Auto) 6.1 Eos % (Auto) 4.0 Baso % (Auto) 0.5 Neut # (Auto) 6.8 Lymph # (Auto) 1.9 [place] # (Auto) 0.6 Eos # (Auto) 0.4 Baso # (Auto) 0.1 Immature Gran % 0.3 Nucleated RBC % 0.0 Immature Gran # 0.03 Nucleated RBCs # 0.00 Immature Plt Fraction 0.0 Sodium 138 Potassium 4.2 Chloride 105 Carbon Dioxide 24 Anion Gap 13.2 BUN 40 H Creatinine 2.50 H GFR Calculation 27 BUN/Creatinine Ratio 16.00 Glucose 81 POC Glucose 123 H Calculated Osmolality 283.7 Calcium 7.8 L Total Bilirubin 0.60 AST 28 ALT 19 Alkaline Phosphatase 70 Total Protein 5.2 L Albumin 2.3 L Globulin 2.9 Albumin/Globulin Ratio 0.7 L Preliminary micro results at discharge 03/13/17 18:46 Sputum Culture - Preliminary Sputum Normal Rosemary at 24 hours 03/11/17 04:09 Blood Culture - Preliminary Blood No growth at 3 days 03/11/17 03:57 Blood Culture - Preliminary Blood No growth at 3 days 03/11/17 17:11 Blood Culture - Preliminary Blood No growth at 1 day 03/11/17 17:11 Blood Culture - Preliminary Blood No growth at 1 day DS: Provider Date of admission: 03/11/17 05:02 Primary care physician: . No PCP Attending physician on admission: Thony De La Torre MD Consults: 03/11/17 05:05 Consult to Physician [CONS] Routine Comment: Consulting Provider: Bimal Landry Consulting Provider Notified: Yes Consult to Specialist Group: Neurology Person Notified: MARTY Date Notified: 03/11/17 Time Notified: 08:40 03/11/17 05:11 Consult to Pharmacy [CONS] Routine Reason for Pharmacy Consult: Dose/Manage Vancomycin Dose/Manage Antibiotics 03/11/17 05:21 Consult to Physician [CONS] Routine Comment: patient of yours Consulting Provider: Thony Yousif Consulting Provider Notified: Yes Consult to Specialist Group: Oncology Person Notified: RUI Date Notified: 03/11/17 Time Notified: 08:45 03/14/17 07:33 Consult to Physician [CONS] Routine Comment: multi-bug uti, home recs Consulting Provider: Akosua Dowling Discharging clinician: Malik DOMÍNGUEZ Expected date of discharge: 03/14/17 <Refugio Vizcarra - Last Filed: 03/14/17 12:53> Hospital Course - Time spent with patient Time with patient DS: Greater than 30 minutes (40) Diagnosis - Discharge Diagnosis (1) CML (chronic myelocytic leukemia) Status: Chronic (2) Metabolic encephalopathy Status: Resolved (3) Seizure disorder Status: Chronic (4) Essential hypertension Status: Chronic (5) Asymptomatic bacteriuria Status: Chronic Discharge Plan - Discharge Data Condition at Discharge: Stable Discharge Diet: advance to your usual diet Activity: increase activity as tolerated Hygiene: no restrictions Weight Bearing at Discharge: weight bear as tolerated Driving: no restrictions Contact your physician if you experience:: fever over 101, Shortness of breath Exam - Constitutional General appearance: normal weight - Head Head exam: Present: normocephalic, atraumatic - Eye Eye exam: Present: EOMI Pupils: Present: JOSETTE - ENT ENT exam: Present: normal exam - Neck Neck exam: Present: normal inspection - Respiratory Respiratory exam: Present: clear to auscultation bilaterally. Absent: rhonchi, wheezes - Cardiovascular Cardiovascular exam: Present: regular rate and rhythm - GI/Abdominal GI/Abdominal exam: Present: normal bowel sounds, soft. Absent: tenderness, rebound - Extremities Exam Extremities exam: Present: normal inspection - Back Exam Back exam: Present: normal inspection - Neurological Exam Neurological exam: Present: alert, oriented X3 - Psychiatric Psychiatric exam: Present: normal affect, normal mood - Skin Skin exam: Present: warm, intact
[2017-03-14 13:54] VITALS: BP 190/88
== END 2017-03-14 14:30 | disposition home or self-care (01) | DRG 100 ==
LOC: EDBD → EDUNIT# → N.ED 02:40 → N.EDINP 05:01 → SUATTDRO 05:01 → N.ICU 05:25 → N.2E 03-13 16:13
PROVIDERS: ADMIT Internal Medicine; ATTEND Internal Medicine

== ENCOUNTER 2017-12-01 09:36 | Inpatient (IN) ==
[2017-12-01] MEDS ORDERED: ATROPINE 1 MG/10 ML SYRINGE ONE (09:56)
[2017-12-01] MEDS ORDERED: EPINEPHrine 1 MG/10 ML SYRINGE ONE (10:00)
[2017-12-01] MEDS ORDERED: ATROPINE 1 MG/10 ML SYRINGE IV STA (10:01)
[2017-12-01] MEDS ORDERED: EPINEPHrine 1 MG/ML VIAL ONE (10:04)
[2017-12-01] MEDS ORDERED: SODIUM CHLORIDE 0.9% 1,000 ML IV STA ×2 (10:05→11:10)
[2017-12-01] MEDS ORDERED: LEVOFLOXACIN INJ 750 MG in PREMIX 1 EACH IV STA (10:08)
[2017-12-01 10:24] LABS: PT Patient Result 10.7 SECS
[2017-12-01 10:30] LABS: Partial Thromboplastin Time 45.3 SECS (0-40)
[2017-12-01 10:40] LABS: Apearance,Urine CLOUDY (Clear); Bacteria,Urine Many /HPF (Few); Bilirubin,Urine Negative (Negative); Blood, Urine Moderate mg/dL (Negative); Glucose,Urine (UA) Negative (Negative); Ketones,Urine Negative (Negative); Mucus,Urine Occasional /LPF (Occasional); Nitrite,Urine Negative (Negative); Protein,Urine 100 MG/DL; RBC,Urine 21 /HPF (0-4); Squamous Epithelial Cell,Urine Occasional /HPF (0-10); Urine Color Yellow (Yellow); Urine Urobilinogen < 2.0 EU/DL (0.2-1.0); WBC,Urine 5 /HPF (0-6)
[2017-12-01 10:43] LABS: Alanine Aminotransferase 74 U/L (16-61); Albumin 2.4 G/DL (3.4-5.0); Alkaline Phosphatase 98 U/L (45-117); Ammonia 10 UMOL/L (11-32); Aspartate Amino Transferase 52 U/L (0-37); Bilirubin,Total < 0.39 MG/DL (0.2-1.0); Blood Urea Nitrogen 113 MG/DL (7-18); CKMB % 14.8 %; Calcium 7.9 MG/DL (8.5-10.1); Glucose 127 MG/DL (74-106); Osmolality,Calculated 277.3 MOS/KG (273-304); Total Protein 5.6 G/DL (6.4-8.3); Troponin I Only < 0.015 NG/ML (0.00-0.045)
[2017-12-01 10:44] LABS: Sodium 119 MMOL/L (136-145)
[2017-12-01 10:45] LABS: Potassium 6.9 MMOL/L (3.5-5.1)
[2017-12-01] MEDS ORDERED: ALBUTEROL NEB SOLN 5 MG/ML 20 ML/BOTTLE CONT NEB STA (10:58)
[2017-12-01] MEDS ORDERED: CALCIUM CHLORIDE 1,000 MG/10 ML SYRINGE IV STA (10:58)
[2017-12-01] MEDS ORDERED: DEXTROSE 50% 25 GM/50 ML VIAL IV STA (10:58)
[2017-12-01] MEDS ORDERED: INSULIN REGULAR 100 UNIT/ML IV STA (10:59)
[2017-12-01 11:01] LABS: Eosinophils # 0.1 10*3/uL (0.0-0.87); Eosinophils % 1.2 % (0.00-10.9); Hematocrit 26.5 VOL% (42.0-52.0); Hemoglobin 8.9 GM/DL (14.0-18.0); Immature Granulocytes % 0.4 %; Immature Granulocytes Absolute 0.03 #; Lymphocytes # 0.5 10*3/uL (1.4-4.0); Lymphocytes % 6.3 % (21.2-54.2); Mean Corpuscular HGB Conc 33.6 GM/DL (32-36); Mean Corpuscular Hemoglobin 32 PG (27-34); Mean Corpuscular Volume 96.4 FL (87-102); Mean Platelet Volume 11.2 FL (9.6-12.0); Monocytes # 0.3 10*3/uL (0.11-0.8); Monocytes % 3.6 % (1.7-12.7); Neutrophils # 6.5 10*3/uL (1.4-7.4); Neutrophils % 88.5 % (38.7-73.9); Red Blood Count 2.75 MC/CUMM (3.8-5.5); Red Cell Distribution Width 16.4 % (9.3-17.3); White Blood Count 7.3 T/CUMM (4-12)
[2017-12-01 11:02] LABS: Platelet Count 42 T/CUMM (130-400)
[2017-12-01 11:04] LABS: Hypochromasia 1+
[2017-12-01 11:05] LABS: Platelet Estimate Decreased
[2017-12-01] MEDS ORDERED: DEXTROSE 50% 25 GM/50 ML SYRINGE IV ONE (12:15)
[2017-12-01] MEDS ORDERED: MORPHINE 4 MG/1 ML VIAL IV PRN (12:36)
[2017-12-01] MEDS ORDERED: LORazepam 2 MG/1 ML VIAL IV PRN (12:36)
[2017-12-01] MEDS ORDERED: SODIUM BICARB INJ 100 MEQ in DEXTROSE 5% 1,000 ML IV SCH (15:00)
[2017-12-01 21:29] VITALS: BP 54/26
== END 2017-12-01 21:15 | disposition expired | DRG 871 ==
LOC: EDUNIT# → EDBD → N.ED 09:36 → N.EDINP 11:45 → N.TELES 14:00
PROVIDERS: ADMIT Internal Medicine; ATTEND Internal Medicine